=== PATIENT | female | born 1995 | race African-American/Black ===

== ENCOUNTER 2019-08-16 20:46 | Emergency (ER) | payer SELFPAY ==
[~2019-08-16] VITALS: Ht 157.5 cm; Wt 55.0 kg
[2019-08-16] MEDS ORDERED: ONDANSETRON 4MG ODT PO ONE (21:45)
[2019-08-16] MEDS ORDERED: HYDROCODONE/ACETAMINOPHEN 5/325MG TABLET PO ONE (21:45)
[2019-08-16] MEDS ORDERED: KETOROLAC 60MG/2ML VIAL IM ONE (21:45)
[2019-08-16] MEDS ORDERED: HYDROMORPHONE HCL/PF 2MG/ML CPJ IV ONE (21:45)
[2019-08-16 23:15] VITALS: BP 118/71
== END 2019-08-16 23:15 | disposition home or self-care (01) ==
LOC: ER 20:50
DX: R51 Headache (principal); S46.811A Strain of other muscles, fascia and tendons at shoulder and upper arm level, right arm, initial encounter; V49.40XA Driver injured in collision with unspecified motor vehicles in traffic accident, initial encounter; Y93.89 Activity, other specified; Y92.410 Unspecified street and highway as the place of occurrence of the external cause
CPT/HCPCS: 96372; 99283; J1885; Q0162; J1170